=== PATIENT | male | born 1955 | race Caucasian/White ===

== ENCOUNTER 2020-12-28 11:41 | Emergency (ER) | payer OTHER | END 2020-12-28 13:25 | disposition home or self-care (01) | LOC: FER 11:41 | DX: M79.81 Nontraumatic hematoma of soft tissue (principal); I11.0 Hypertensive heart disease with heart failure; I50.9 Heart failure, unspecified; J44.9 Chronic obstructive pulmonary disease, unspecified; R06.00 Dyspnea, unspecified; E11.9 Type 2 diabetes mellitus without complications; I25.10 Atherosclerotic heart disease of native coronary artery without angina pectoris; Z95.9 Presence of cardiac and vascular implant and graft, unspecified | CPT/HCPCS: 99283 ==

== ENCOUNTER 2021-12-01 13:22 | Emergency (ER) | payer OTHER ==
[2021-12-01] MEDS ORDERED: NORCO 5-325 TA1 EACH PO (15:50)
== END 2021-12-01 16:33 | disposition home or self-care (01) ==
LOC: FER 13:22
DX: S83.412A Sprain of medial collateral ligament of left knee, initial encounter (principal); E11.9 Type 2 diabetes mellitus without complications; I10 Essential (primary) hypertension; Z88.8 Allergy status to other drugs, medicaments and biological substances; Z79.82 Long term (current) use of aspirin; Z79.84 Long term (current) use of oral hypoglycemic drugs; Z79.899 Other long term (current) drug therapy; W19.XXXA Unspecified fall, initial encounter; X50.1XXA Overexertion from prolonged static or awkward postures, initial encounter; Y92.009 Unspecified place in unspecified non-institutional (private) residence as the place of occurrence of the external cause
CPT/HCPCS: 73564; 73590